=== PATIENT | female | born 1985 | race Caucasian/White ===

== ENCOUNTER 2017-07-11 03:58 | Emergency (ER) | payer OTHER ==
[~2017-07-11] VITALS: Ht 165.1 cm; Wt 56.0 kg
--- NOTE | 2017-07-11 04:03 | ED.REPORT ---
HPI-General Illness Date of Service Jul 11, 2017 ED Provider: Del Johnson MD A 31 year old female with a history of hepatitis C, COPD and IV drug abuse presents to the ED with left-sided facial swelling that began this morning. The patient reports experiencing dental pain for the past few days. She noticed significant swelling after waking up this morning. Patient denies any recent fever, chills, nausea or vomiting. Patient does not currently have a dentist. Nursing Notes Stated Complaint: FACIAL SWELLING Nursing Notes Reviewed: Yes Allergies: Coded Allergies: Penicillins (Verified Allergy, Severe, Anaphylaxis, 12/19/15) metoclopramide (Verified Allergy, Intermediate, 06/01/16) nicotine (Verified Allergy, Mild, Itching and redness with patch, 12/19/15) Sulfa (Sulfonamide Antibiotics) (Verified Allergy, Unknown, 12/19/15) codeine (Verified Allergy, Unknown, 12/19/15) Scheduled Clindamycin (Clindamycin) 300 Mg Capsule 600 MG PO TID Famotidine (Pepcid) 20 Mg Tablet 20 MG PO BID Scheduled PRN Naproxen (Naproxen) 500 Mg Tab 500 MG PO BID PRN PRN For Pain General Time Seen by MD: 04:02 Chief Complaint Other (Facial Swelling) Hx Obtained From: Patient Arrived By: Walk-in Sudden in Onset?: No Symptom Duration: Since onset Associated with: Denies: Fever, Nausea, Vomiting Pertinent Negative: Pt denies other symptoms Recent Healthcare: No recent doctor visit, No recent hospitalization Past Medical History Past Medical History OCD- "picks at face when in pain" Hep C COPD Past Surgical History Reports: Cholecystectomy, Hysterectomy Family History noncontributory Smoking History Current Every Day Smoker Social History Alcohol Use: Denies alcohol use Drug Use: IV drugs, Meth Other Social History: Local resident Ambulatory Status Independent Review of Systems + L facial swelling Full Review of Systems Constitutional: Denies: Chills, Fever Ears / Nose / Throat: Reports: Toothache GI: Denies: Nausea, Vomiting Complete sys rev & neg: except as marked. Physical Exam Vital Signs Vital Signs Date Time Temp Pulse Resp B/P Pulse Ox O2 Delivery O2 Flow Rate FiO2 07/11/17 04:59 36.6 88 18 140/91 99 Room Air 07/11/17 04:12 36.3 88 18 143/91 99 Room Air 07/11/17 04:06 36.3 88 18 143/91 99 Room Air Initial VS: Reviewed Neck: Supple, Non-tender, Full range of motion Extremities: Vascular intact, Neuro intact, No swelling, No tenderness Skin: Warm, Dry, No cyanosis Neurologic: Alert, Oriented, Nonfocal Psychiatric: Mood/affect normal, Behavior normal, Normal thought content General/Constitutional: Awake, Alert, No acute distress Head / Eyes: Atraumatic, Normocephalic, PERRL ENT: Atraumatic, Airway patent, Mucous membranes moist, Pharynx NL Dental / Gums: Positive: Dental caries present (Multiple dental caries present) , Dentition poor, Ginigivitis present, Tooth fracture (Multiple dental fractures (#19 and #20 -broken to gumline) ) Respiratory / Chest: Atraumatic, Breath sounds NL, Breath sounds = bilat, No respiratory distress Cardiovascular: Heart rate NL, Regular rhythm, Heart sounds NL Abdomen: Atraumatic, Soft Re-Eval/Medical Decision Med Decision/Clinical Course 31-year-old with a history of methamphetamine abuse presents with multiple broken carious teeth and pain in her left jaw. Provided with clindamycin as she is penicillin allergic. Decadron single dose tonight. Naprosyn for ongoing pain relief. Follow-up with dentist. Time of Eval: 04:08 Patient Status: Condition improved Re-Evaluation/Progress Note: Patient condition is re-evaluated. She is informed of her current results and the intended treatment plan. All questions about her results are addressed. She understands and agrees with the plan to discharge with dental follow up. Counseled Regarding: Diagnosis, Need for follow-up, When/why to return to ED Discharge & Departure Primary Impression: Fracture, tooth Encounter type: initial encounter Additional Impressions: Left facial swelling Dental abscess Methamphetamine abuse Disposition: Home Discharge Condition All VS Reviewed: Yes Condition: Improved Patient Instructions: Acute Dental Trauma (ED), Dental Caries (ED), Toothache ( ED), Dental Abscess (ED) Additional Instructions: Refer to dental list for local dental resources. It is essentially see a dentist. Pills were only suppress this temporarily. Follow up with your doctor in the office. Clindamycin two capsules three times daily. Naprosyn twice daily with food. Pepcid twice daily as long as you are taking Naprosyn. Zofran if needed for nausea. Referrals: Edmund Hopkins DO (PCP) [employer] Scribe Attestation Portions of this note were transcribed by Bel Xavier. I, Dr. Johnson, personally performed the history, physical exam and medical decision-making; I reviewed and confirmed the accuracy of the information in the transcribed note. Signed by: Bel Xavier, 07/11/17. copies to: Edmund Hopkins Christopher W MD Jul 11, 2017 04:02 BEL XAVIER Jul 11, 2017 04:06
[2017-07-11 04:06] VITALS: BP 143/91; PULSE 88; RESP 18; O2SAT 99
[2017-07-11 04:12] VITALS: BP 143/91; PULSE 88; RESP 18; O2SAT 99
[2017-07-11] MEDS ORDERED: Dexamethasone 20 mg/2 mL Oral Solution PO ONE (04:20)
[2017-07-11] MEDS ORDERED: CLIN-78 PO (04:26)
[2017-07-11] MEDS ORDERED: FAMO20T PO (04:26)
[2017-07-11] MEDS ORDERED: NPR500T PO (04:26)
[2017-07-11 04:59] VITALS: BP 140/91; PULSE 88; RESP 18; O2SAT 99
== END 2017-07-11 05:00 | disposition home or self-care (01) ==
LOC: SED 03:58
DX: K03.81 Cracked tooth (principal); K04.7 Periapical abscess without sinus; F15.10 Other stimulant abuse, uncomplicated; F17.200 Nicotine dependence, unspecified, uncomplicated; Z90.710 Acquired absence of both cervix and uterus; Z88.0 Allergy status to penicillin; Z88.2 Allergy status to sulfonamides; Z88.5 Allergy status to narcotic agent; Z88.8 Allergy status to other drugs, medicaments and biological substances
CPT/HCPCS: 96372; 99283; J1885

== ENCOUNTER 2017-07-14 10:05 | Emergency (ER) | payer OTHER ==
[~2017-07-14] VITALS: Ht 165.1 cm; Wt 56.8 kg
[~2017-07-14 10:05] MED LIST: CLIN-78 PO; FAMO20T PO; NPR500T PO
[2017-07-14 10:10] VITALS: BP 121/81; PULSE 102; RESP 18; O2SAT 99
--- NOTE | 2017-07-14 10:11 | ED.REPORT ---
HPI-Abd Pain F Under 40 Date of Service Jul 14, 2017 ED Provider: Hunter Bonds DO Pt is a 31 y/o female with a history of Hep C, COPD, and bipolar disorder who presents to the ED c/o abdominal pain onset 3 days ago. She was seen in the ED on 07/11/17 for left-sided facial swelling after having a fractured tooth. She states she had no pain when she arrived to the ED on 07/11/17, but left in pain and has had pain ever since. Additional symptoms include pain while swallowing and eating. She denies diarrhea, fever, cough, nausea, vomiting, dysuria, hematochezia, or any other symptoms. She has not seen a dentist because she has no dental insurance. Past medical records reviewed. She has a history of IVDA, but denies current use. Nursing Notes Stated Complaint: STOMACH PAIN/FOLLOW UP Chief Complaint: Female Abdominal Pain Nursing Notes Reviewed: Yes Allergies: Coded Allergies: Penicillins (Verified Allergy, Severe, Anaphylaxis, 07/14/17) metoclopramide (Verified Allergy, Intermediate, 07/14/17) nicotine (Verified Allergy, Mild, Itching and redness with patch, 07/14/17) Sulfa (Sulfonamide Antibiotics) (Verified Allergy, Unknown, 07/14/17) codeine (Verified Allergy, Unknown, 07/14/17) Scheduled Clindamycin (Clindamycin) 300 Mg Capsule 600 MG PO TID Famotidine (Pepcid) 20 Mg Tablet 20 MG PO BID Pantoprazole DR (Pantoprazole DR) 40 Mg Tablet.dr 40 MG PO BID Scheduled PRN Naproxen (Naproxen) 500 Mg Tab 500 MG PO BID PRN PRN For Pain General Time Seen by MD: 10:11 Chief Complaint Abdominal pain Hx Obtained From: Patient Arrived By: Walk-in Sudden in Onset?: No Onset Occurred: 3 days ago Symptom Duration: Constant Location: : Epigastric Quality: Painful Severity: Current: Mild Severity: Maximum: Moderate Additional Notes: Pain while eating and drinking Recent Healthcare: Recent doctor visit Similar Sx Previous: Yes Past Medical History Past Medical History OCD- "picks at face when in pain" Hep C COPD Anxiety Depression Bipolar Past Surgical History Reports: Cholecystectomy, Hysterectomy Family History noncontributory Smoking History Former Smoker Social History Has a history of IVDA, but denies current use on 07/14/17 Alcohol Use: Denies alcohol use Drug Use: IV drugs Other Social History: Local resident Ambulatory Status Independent Review of Systems Pain while drinking Pain while eating Constitutional: Denies: Fever Respiratory: Denies: Non-productive cough, Prod cough, clear GI: Reports: Abdominal pain (epigastric), Denies: Diarrhea, Hematochezia, Nausea, Vomiting Female: Denies: Dysuria Complete sys rev & neg: except as marked. Physical Exam Initial Vital Signs Vital Signs (First) Date Time Temp Pulse Resp B/P Pulse Ox O2 Delivery O2 Flow Rate FiO2 07/14/17 10:10 36.6 102 18 121/81 99 Room Air Initial VS: Reviewed Neck: Supple, Full range of motion Extremities: Vascular intact, Neuro intact, No swelling, No tenderness Skin: Warm, Dry, No cyanosis Neurologic: Alert, Oriented, Nonfocal Psychiatric: Mood/affect normal, Behavior normal, Normal thought content General/Constitutional: Awake, Alert Pressured speech Respiratory / Chest: Atraumatic, Breath sounds NL, Breath sounds = bilat, No respiratory distress Cardiovascular: Heart rate NL, Regular rhythm, Heart sounds NL Abdomen: Atraumatic, Soft Tenderness/Guarding/Rebound: Positive: Tender epigastric Back: Inspection NL, Full range of motion ENT: Atraumatic, Airway patent Dental / Gums: Positive: Dentition poor Multiple dental caries without periapical abscess Mild psychomotor agitation Re-Eval/Medical Decision Med Decision/Clinical Course Med Decision/Clinical Course: Epigastric pain relieved after GI cocktail likely due to NSAID use. Protonix prescribed. Recommend discontinuing NSAIDs and using [id number] antacids. Given dental clinic resources. Return precautions given. Source of Hx: Old records Re-Evaluation/Progress : Time of Eval: 11:00 Patient Status: Condition improved Re-Evaluation/Progress Note: Patient rechecked. Patient states improvement in symptoms and wishes to go home. Discussed plan for discharge. Patient understands and agrees with plan. F/U instructions and RTER warnings given. All questions addressed at this time. Counseled Regarding: Diagnosis, Lab results, Need for follow-up, When/why to return to ED Discharge & Departure Primary Impression: Abdominal Pain, Epigastric Additional Impression: Tooth fracture Encounter type: subsequent encounter Fracture type: closed Fracture healing : with nonunion Qualified Code: S02.5XXK - Fracture of tooth (traumatic), subsequent encounter for fracture with nonunion Disposition: Home Discharge Condition All VS Reviewed: Yes Condition: Stable Additional Instructions: Stop taking naproxen, ibuprofen, or aspirin. Take pantoprazole twice daily. Also buy [id number] liquid antacids and use them as directed as needed for symptoms. Continue your antibiotic. Call a dentist today for definitive management of your dental problems. Return to the ER as needed for concerning symptoms. Referrals: Edmund Hopkins DO (PCP) Scribe Attestation Portions of this note were transcribed by Sarah Mejia. I, Dr. Bonds, personally performed the history, physical exam and medical decision-making; I reviewed and confirmed the accuracy of the information in the transcribed note. Signed by Agustín Guadarrama, 07/14/17. copies to: Edmund Hopkins Timothy S DO Jul 14, 2017 10:11 Sarah Mejia Jul 14, 2017 10:21
[2017-07-14] MEDS ORDERED: LidocaineVisc 2%:Antacid 1:1 10 mL Syringe PO ONE (10:20)
[2017-07-14] MEDS ORDERED: PANT40TA3 PO (11:04)
[2017-07-14 11:15] VITALS: BP 120/78; PULSE 93; RESP 20; O2SAT 99
== END 2017-07-14 11:15 | disposition home or self-care (01) ==
LOC: SED 10:05
DX: R10.13 Epigastric pain (principal); S02 Fracture of skull and facial bones; X58.XXXD Exposure to other specified factors, subsequent encounter; Y93.89 Activity, other specified; Y92.89 Other specified places as the place of occurrence of the external cause; Y99.8 Other external cause status; K02.9 Dental caries, unspecified; J44.9 Chronic obstructive pulmonary disease, unspecified; F41.8 Other specified anxiety disorders; F31.9 Bipolar disorder, unspecified; Z90.49 Acquired absence of other specified parts of digestive tract; Z87.891 Personal history of nicotine dependence; Z88.0 Allergy status to penicillin; Z88.2 Allergy status to sulfonamides; Z88.5 Allergy status to narcotic agent; Z88.8 Allergy status to other drugs, medicaments and biological substances